=== PATIENT | male | born 1965 | race Caucasian/White ===

== ENCOUNTER 2021-08-31 10:08 | Emergency (ER) | payer OTHER, SELFPAY ==
[2021-08-31 10:15] VITALS: BP 135/80; PULSE 67; RESP 14; TEMP 36.6; O2SAT 98
[2021-08-31] MEDS: LIDOCAINE HCL 1% LOCAL INJ 20 ML VIAL (10:33)
[2021-08-31] MEDS: TETANUS,DIPHTHERIA,AC PERTUSSIS ADULT 0.5 ML (ADACEL) IM (10:33)
--- NOTE | 2021-08-31 10:38 | ED.WOUNDLAC ---
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 Onset (ago): hour(s) Extremity Location: Left: forearm ( 2.5cm laceration gaping) Place: work Context: accidental Associated symptoms: none Related Data Home Medications Medication Instructions Recorded Confirmed No Home Medications 08/31/21 08/31/21 Allergies Allergy/AdvReac Type Severity Reaction Status Date / Time No Known Allergies Allergy Verified 08/31/21 10:22 Review of Systems Review of Systems: All systems reviewed & are unremarkable except as noted in HPI and below PMFSH Past Medical History Medical History Patient denies medical problems Exam Const: General: no acute distress and alert Orientation/consciousness: patient oriented x3 HENMT: Head: normal to inspection Eyes: Conjunctivae: conjunctivae normal Pupils: Equal, round and reactive pupils present Neck: Neck: normal visual inspection, no lymphadenopathy and no meningeal signs Chest: Chest palpation & inspection: normal inspection of the chest Resp: Effort & Inspection: normal respiratory effort Cardio: Rate: regular rate Rhythm: regular rhythm GI: GI Palp: Yes Soft to palpation Percussion: Yes normal to percussion Back/Spine/Pelvis: Back: no CVA tenderness Skin: General skin exam: normal color Other: 2.5cm laceration left forearm mildly gaping Neuro: General: patient oriented x3 and moves all extremities Extrem: General: normal to inspection and no pedal edema Psych: Mental Status: mental status grossly normal Course Course Emergency Course: patient received 5cc 1% lidocaine to the wound site for topical anesthesia, sutures placed, 4 sutures patient tolerated procedure well. Administered tetanus vaccine. Vital Signs Vital signs: Vital Signs Temperature 36.6 C 08/31/21 10:15 Pulse Rate 67 08/31/21 10:15 Respiratory Rate 14 08/31/21 10:15 Blood Pressure 135/80 08/31/21 10:15 Pulse Oximetry 98 08/31/21 10:15 Temperature 36.6 C 08/31/21 10:15 Pulse Rate 67 08/31/21 10:15 Respiratory Rate 14 08/31/21 10:15 Blood Pressure 135/80 08/31/21 10:15 Pulse Oximetry 98 08/31/21 10:15 Procedures Laceration Laceration 1: Date: 08/31/21 Time: 10:41 Site: upper extremity Side (If applicable): left Size (cm): 2.5 Description: linear Depth: simple, single layer Local Anesthetic: lidocaine 1% Amount of anesthesia used (mL): 5 Pre-repair: wound explored and irrigated ====== Skin Level ====== Skin layer closed with: vicryl Size (cm): 4-0 Number of sutures: 4 ====== Subcutaneous Layer ====== ====== Muscle Layer ====== ====== Tendon Layer ====== Critical Care Time Critical Care Time Critical Care Time: No Discharge Plan Discharge Clinical Impression: Laceration Patient Disposition: Home, Self-Care Condition: Stable Instructions: Antibiotic Form, Laceration (ED) Additional Instructions: Sutures to be removed and approximately 8 days By primary care physician.. Prescriptions: No Action No Home Medications RF: 0 Follow-up/Referrals: Telly Garsia MD [Primary Care Provider] - Time of Disposition: 10:42
== END 2021-08-31 10:44 | disposition home or self-care (01) ==
PROVIDERS: Emergency Provider Emergency Medicine; PCP Family Medicine
DX: S51.812A Laceration without foreign body of left forearm, initial encounter (principal); W45.8XXA Other foreign body or object entering through skin, initial encounter
CPT/HCPCS: 12001; 90471; 90715; 99282